=== PATIENT | female | born 1955 | race Caucasian/White ===

== ENCOUNTER → 2018-12-05 | Outpatient (REF) | payer OTHER ==
[2018-12-05 16:46] LABS: BASO % 0.7 % (0.0-1.0); EOS # 0.1 10^3/uL (0.0-0.50); LYMPH # 1.7 10^3/uL (1.5-4.5); LYMPH % 27.7 % (24.0-44.0); MEAN CORPUSCULAR HEMOGLOBIN 32.4 pg (27.0-33.0); MEAN CORPUSCULAR HGB CONC 32.6 g/dl (32.0-36.5); MEAN CORPUSCULAR VOLUME 99.5 fl (80.0-96.0); MONO # 0.6 10^3/uL (0.0-0.8); NEUTROPHILS # 3.8 10^3/uL (1.8-7.7); NEUTROPHILS % 61.3 % (36.0-66.0); PLATELET COUNT, AUTOMATED 255 10^3/uL (150-450); RED BLOOD COUNT 4.32 10^6/uL (4.00-5.40); WHITE BLOOD COUNT 6.1 10^3/uL (4.0-10.0)
[2018-12-05 17:21] LABS: ALBUMIN 4.3 GM/DL (3.2-5.2); ALT/SGPT 52 U/L (12-78); BILIRUBIN,TOTAL 0.6 MG/DL (0.2-1.0); BLOOD UREA NITROGEN 15 MG/DL (7-18); CALCIUM LEVEL 8.9 MG/DL (8.8-10.2); CARBON DIOXIDE LEVEL 30 MEQ/L (21-32); CHLORIDE LEVEL 104 MEQ/L (98-107); CHOLESTEROL LEVEL 228 MG/DL (<200); CHOLESTEROL RISK RATIO 3.454 (<5); CREATININE FOR GFR 0.62 MG/DL (0.55-1.30); FREE T4 1.04 NG/DL (0.76-1.46); GLOMERULAR FILTRATION RATE > 60.0 (>45); GLUCOSE, FASTING 96 MG/DL (70-100); HDL CHOLESTEROL 66 MG/DL (>40); LDL CHOLESTEROL 134 MG/DL (<100); NON-HDL-C 162 MG/DL; POTASSIUM SERUM 4.2 MEQ/L (3.5-5.1); SODIUM LEVEL 141 MEQ/L (136-145); TOTAL PROTEIN 7.7 GM/DL (6.4-8.2); TRIGLYCERIDES LEVEL 140 MG/DL (<150)
== END ==
LOC: M SFHCCLAY 13:44
PROVIDERS: ATTEND Nurse Practitioner Family
DX: Z00.00 Encounter for general adult medical examination without abnormal findings (principal); R23.4 Changes in skin texture; S20.362A Insect bite (nonvenomous) of left front wall of thorax, initial encounter; W57.XXXA Bitten or stung by nonvenomous insect and other nonvenomous arthropods, initial encounter; Y92.9 Unspecified place or not applicable; Y93.9 Activity, unspecified

== ENCOUNTER → 2018-12-31 | Outpatient (REF) | payer OTHER | LOC: M SFHCCLAY 16:04 | PROVIDERS: ATTEND Nurse Practitioner Family | DX: Z12.4 Encounter for screening for malignant neoplasm of cervix (principal) ==

== ENCOUNTER → 2019-01-21 | Outpatient (CLI) | payer OTHER ==
--- NOTE | 2019-01-21 15:36 | REPMRS ---
Patient History The patient states she had a clinical breast exam in December 2018. Patient is postmenopausal and is nulliparous. No known family history of cancer. Patient has a history of skin cancer at 59. Patient states she had a right breast bx that was benign, not sure where or when. Prior mammos are no longer available, 15 years ago. 3D TOMOSYNTHESIS WAS PERFORMED. [facility] lifetime risk for breast cancer is 7.0%. Digital Mammo Screening Bilat: January 21, 2019 - Exam #: [id number] Bilateral CC and MLO view(s) were taken. Technologist: La Nena Garcia, Technologist FINDINGS: There are scattered fibroglandular densities. There is no evidence of cancer on this mammogram. Assessment: BI-RADS/ACR category 2 mammogram. Benign Findings. Recommendation Routine screening mammogram of both breasts in 1 year (for women over age 40). This mammogram was interpreted with the aid of an FDA-approved computer-aided dectection system. Electronically Signed By: Abdiaziz Craig MD 01/21/19 [id number]
== END ==
LOC: M RAD 14:16
PROVIDERS: ATTEND Nurse Practitioner Family
DX: Z12.31 Encounter for screening mammogram for malignant neoplasm of breast (principal); Z85.828 Personal history of other malignant neoplasm of skin

== ENCOUNTER 2019-05-23 08:49 | Day surgery (SDC) | payer OTHER ==
[~2019-05-23] VITALS: Ht 172.7 cm; Wt 82.6 kg
[~2019-05-23 08:49] MED LIST: NS 1,000 ML IV ONE
[2019-05-23] MEDS ORDERED: PROPOFOL 200 MG/20 ML VIAL As Ordered ONE ×2 (11:06→11:17)
[2019-05-23] MEDS ORDERED: LIDOCAINE 2% INJ 100 MG/5 ML SDV (FOR ANES.) As Ordered ONE (11:06)
--- NOTE | 2019-05-23 11:26 | ROOR ---
Patient Name: Verito Walter Procedure Date: 05/23/2019 10:59 AM Date of : 1955 Age: 64 Room: [facility] Gender: Female Note Status: Finalized Procedure: Colonoscopy Indications: Screening for colorectal malignant neoplasm Providers: Bucky GUADALUPE MD Referring MD: Karon Fierro NP Requesting Provider: Medicines: Monitored Anesthesia Care Complications: No immediate complications. Procedure: Pre-Anesthesia Assessment: - The heart rate, respiratory rate, oxygen saturations, blood pressure, adequacy of pulmonary ventilation, and response to care were monitored throughout the procedure. The Colonoscope was introduced through the anus and advanced to the terminal ileum, with identification of the appendiceal orifice and IC valve. The colonoscopy was performed without difficulty. The patient tolerated the procedure well. The quality of the bowel preparation was good. Findings: The perianal and digital rectal examinations were normal. Two sessile polyps were found in the sigmoid colon and splenic flexure. The polyps were 9 to 10 mm in size. These polyps were removed with a piecemeal technique using a cold snare. Resection and retrieval were complete. Mild sigmoid diverticulosis and small internal hemorrhoids. The exam was otherwise without abnormality on direct and retroflexion views. Impression: - Two 9 to 10 mm polyps in the sigmoid colon and at the splenic flexure, removed piecemeal using a cold snare. Resected and retrieved. - Mild sigmoid diverticulosis and small internal hemorrhoids. - The examination was otherwise normal on direct and retroflexion views. Recommendation: - Repeat colonoscopy in 3 years for surveillance. Bucky Guadalupe MD Bucky GUADALUPE MD 05/23/2019 11:25:59 AM Electronically signed by Bucky GUADALUPE MD Number of Addenda: 0 Note Initiated On: 05/23/2019 10:59 AM Estimated Blood Loss: Estimated blood loss: none.
[2019-05-23 11:52] VITALS: BP 139/63
== END 2019-05-23 11:52 | disposition home or self-care (01) ==
LOC: M OPP 08:49
PROVIDERS: ATTEND Internal Medicine Gastroenterology
DX: Z12.11 Encounter for screening for malignant neoplasm of colon (principal); K63.5 Polyp of colon; K57.30 Diverticulosis of large intestine without perforation or abscess without bleeding; Z88.0 Allergy status to penicillin; Z88.2 Allergy status to sulfonamides

== ENCOUNTER → 2019-11-27 | Outpatient (CLI) | payer OTHER ==
--- NOTE | 2019-11-27 15:27 | REP ---
Left wrist: Four views. History: Injury. Findings: Four views of the left wrist demonstrate a transversely oriented fracture through the distal radial metaphysis with very slight impaction and 2 mm of dorsal displacement. There is associated soft-tissue swelling. There is a slightly comminuted fracture of the ulnar styloid. There is mild diffuse osteopenia. No carpal fracture is seen. Impression: Distal radial metaphyseal and ulnar styloid fractures. Mild diffuse osteopenia. Electronically Signed by Gurwinder Martinez MD 11/27/2019 03:18 P
== END ==
LOC: M LRY 15:03
PROVIDERS: ATTEND Physician Assistant
DX: S52.512A Displaced fracture of left radial styloid process, initial encounter for closed fracture (principal); X58.XXXA Exposure to other specified factors, initial encounter; Y92.9 Unspecified place or not applicable

== ENCOUNTER → 2020-01-17 | Outpatient (REF) | payer OTHER ==
[2020-01-17 16:53] LABS: BASO % 0.6 % (0.0-1.0); EOS # 0.1 10^3/uL (0.0-0.5); EOS % 1.1 % (0.0-3.0); HEMATOCRIT 40.1 % (36.0-47.0); HEMOGLOBIN 13.1 g/dl (12.0-15.5); LYMPH # 1.5 10^3/uL (1.5-5.0); LYMPH % 29.1 % (24.0-44.0); MEAN CORPUSCULAR HEMOGLOBIN 31.2 pg (27.0-33.0); MEAN CORPUSCULAR HGB CONC 32.7 g/dl (32.0-36.5); MEAN CORPUSCULAR VOLUME 95.5 fl (80.0-96.0); MONO # 0.5 10^3/uL (0.0-0.8); NEUTROPHILS # 3.1 10^3/uL (1.5-8.5); NEUTROPHILS % 59.8 % (36.0-66.0); PLATELET COUNT, AUTOMATED 241 10^3/uL (150-450); WHITE BLOOD COUNT 5.3 10^3/uL (4.0-10.0)
[2020-01-17 17:07] LABS: ALBUMIN 4.1 GM/DL (3.2-5.2); ALT/SGPT 28 U/L (12-78); BILIRUBIN,TOTAL 0.4 MG/DL (0.2-1.0); BLOOD UREA NITROGEN 13 MG/DL (7-18); CALCIUM LEVEL 9.2 MG/DL (8.8-10.2); CARBON DIOXIDE LEVEL 30 MEQ/L (21-32); CHLORIDE LEVEL 103 MEQ/L (98-107); CHOLESTEROL LEVEL 233 MG/DL (<200); CHOLESTEROL RISK RATIO 4.568 (<5); CREATININE FOR GFR 0.63 MG/DL (0.55-1.30); FREE T4 1.03 NG/DL (0.76-1.46); GLOMERULAR FILTRATION RATE > 60.0 (>45); GLUCOSE, FASTING 100 MG/DL (70-100); HDL CHOLESTEROL 51 MG/DL (>40); LDL CHOLESTEROL 155 MG/DL (<100); NON-HDL-C 182 MG/DL; POTASSIUM SERUM 3.8 MEQ/L (3.5-5.1); SODIUM LEVEL 137 MEQ/L (136-145); THYROID STIMULATING HORMONE 0.988 uIU/ML (0.358-3.740); TOTAL PROTEIN 7.3 GM/DL (6.4-8.2); TRIGLYCERIDES LEVEL 135 MG/DL (<150)
== END ==
LOC: M SFHCCLAY 10:19
PROVIDERS: ATTEND Nurse Practitioner Family
DX: E78.2 Mixed hyperlipidemia (principal)

== ENCOUNTER 2020-06-14 12:26 | Observation (INO) | payer OTHER ==
[~2020-06-14] VITALS: Ht 172.7 cm; Wt 83.1 kg
[2020-06-14] MEDS ORDERED: LABETALOL 100MG/20ML VIAL IV STA (12:52)
--- NOTE | 2020-06-14 13:19 | REP ---
INDICATION: Altered Mental Status COMPARISON: None. TECHNIQUE: Axial noncontrast images from the skull base to the thoracic inlet with coronal reformations. This CT examination was performed using the following dose reduction techniques: Automated exposure control, adjustment of mA and/or kv according to the patient's size, and use of iterative reconstruction technique. FINDINGS: Age-related atrophy and microvascular ischemic changes are appreciated. The ventricles and sulci are symmetric. Craig-white differentiation is maintained. There is no evidence for acute intracranial hemorrhage, mass/mass effect, pathology or infarction. No extra-axial fluid collection. Calvarium is intact. Paranasal sinuses and mastoid air cells are clear. IMPRESSION: Age related atrophy and microvascular ischemic changes. No acute intracranial hemorrhage, infarction, or mass/mass effect. <Electronically signed by Nino Morales > 06/14/20 [id number]
--- NOTE | 2020-06-14 13:20 | REP ---
INDICATION: Altered Mental Status COMPARISON: None. TECHNIQUE: Portable AP view of the chest FINDINGS: The mediastinum and cardiac silhouette are stable and within normal limits for portable technique. The lung mohan are clear without acute consolidation, effusion, or pneumothorax. Skeletal structures are intact. IMPRESSION: No acute consolidation or effusion. <Electronically signed by Nino Morales > 06/14/20 [id number]
[2020-06-14 13:29] LABS: BASO % 0.3 % (0.0-1.0); EOS % 0.5 % (0.0-3.0); HEMATOCRIT 41.9 % (36.0-47.0); HEMOGLOBIN 13.7 g/dl (12.0-15.5); LYMPH # 1.3 10^3/uL (1.5-5.0); LYMPH % 21.5 % (24.0-44.0); MEAN CORPUSCULAR HEMOGLOBIN 30.9 pg (27.0-33.0); MEAN CORPUSCULAR HGB CONC 32.7 g/dl (32.0-36.5); MEAN CORPUSCULAR VOLUME 94.4 fl (80.0-96.0); MONO # 0.5 10^3/uL (0.0-0.8); MONO % 8.2 % (0.0-5.0); NEUTROPHILS % 69.3 % (36.0-66.0); PLATELET COUNT, AUTOMATED 241 10^3/uL (150-450); RED BLOOD COUNT 4.44 10^6/uL (4.00-5.40); WHITE BLOOD COUNT 5.8 10^3/uL (4.0-10.0)
[2020-06-14 14:09] LABS: ACETAMINOPHEN LEVEL < 2.0 UG/ML (10.0-30.0); ALBUMIN 4.5 GM/DL (3.2-5.2); ALT/SGPT 40 U/L (12-78); BILIRUBIN,DIRECT < 0.1 MG/DL (0.0-0.2); BILIRUBIN,TOTAL 0.5 MG/DL (0.2-1.0); BLOOD UREA NITROGEN 17 MG/DL (7-18); CALCIUM LEVEL 9.1 MG/DL (8.8-10.2); CARBON DIOXIDE LEVEL 31 MEQ/L (21-32); CHLORIDE LEVEL 106 MEQ/L (98-107); CK-MB VALUE MASS < 1.0 NG/ML (<3.6); CPK CREATINE PHOSPHOKINASE 68 U/L (26-192); CREATININE FOR GFR 0.74 MG/DL (0.55-1.30); ETHYL ALCOHOL (ETHANOL) < 0.003 % (0.000-0.010); GLOMERULAR FILTRATION RATE > 60.0 (>45); GLUCOSE, FASTING 103 MG/DL (70-100); MB/CK RELATIVE INDEX 1.47 (< OR =4); POTASSIUM SERUM 3.7 MEQ/L (3.5-5.1); SODIUM LEVEL 141 MEQ/L (136-145); TOTAL PROTEIN 7.5 GM/DL (6.4-8.2); TROPONIN I < 0.02 NG/ML (< 0.10)
--- NOTE | 2020-06-14 15:27 | HPEPDOC ---
[facility] Medical History & Physical Date of Admission Jun 14, 2020 Date of Service: Jun 14, 2020 Attending Physician: Sarah Jack MD History and Physical CHIEF COMPLAINT: vision changes, numbness of leg HISTORY OF PRESENT ILLNESS: The patient is a 65-year-old female with past medical history of borderline hypertension, history of kidney stones who presented to [facility] emergency room after having acute onset of vision changes and numbness of her left lower extremity earlier in the day area the patient states this morning at approximately 7:30 she began experiencing left eye vision changes like a "film was over my eye". Is a described her vision changes as looking through a "prism". Around the same time she also noted left leg numbness and weakness which increased when she stood up. She also experienced increased unsteadiness on her feet. She took an aspirin and drank some water thinking perhaps this would help but the episodes reoccurred twice more within several hours. She denied chest pain, shortness of breath, fevers, chills, recent illness, nausea, vomiting. She admits to being increasingly stressed at home and sometimes being highly anxious. She does not have an official diagnosis of anxiety. Due to the recurrence of symptoms, the patient called a neighbor who then drove her to the emergency room to be evaluated. In the ER, BPs ranged 895822/76423 mmHg. Other vital signs were stable. All labs were unremarkable. ECG showed normal sinus rhythm. Patient had no recurr ence of symptoms during her emergency room stay. She was given labetalol 20 mg with little improvement of her blood pressure. The patient was ultimately admitted for hypertensive urgency, left leg numbness and unsteadiness, rule out TIA. REVIEW OF SYSTEMS: CONSTITUTIONAL: Denies lack of energy, unexplained weight gain or weight loss, loss of appetite, fever, night sweats EYES: Denies eye drainage, eye pain, visual changes, dry/irritated eye EARS, NOSE, MOUTH, THROAT: Denies difficulty hearing, ringing in ears, mouth sores, loose teeth, sore throat, facial numbness or pain NECK: Denies swollen glands CARDIOVASCULAR: Denies irregular heartbeat, racing heart, chest pains, swelling of feet or legs, pain in legs with walking RESPIRATORY: Denies shortness of breath, night sweats, wheezing, sputum production, oxygen at home, coughing up blood, cough lasting > 1 month GASTROINTESTINAL: Denies abdominal pain, constipation, bloody stool, diarrhea, heartburn, nausea, vomiting GENITOURINARY: Denies painful urination, bloody urine, frequent urination, urgency, leaking urine, impotence MUSCULOSKELETAL: Denies joint pain, muscle pain, leg swelling INTEGUMENTARY: Denies rash, itching, new skin lesion, change in existing skin lesion, hair loss or increase, breast changes. NEUROLOGICAL: Denies headaches PSYCHIATRIC: Denies depression, anxiety, recurrent bad thoughts, mood swings, hallucinations PAST MEDICAL HISTORY: 1. Borderline hypertension 2. Hx of kidney stones PAST SURGICAL HISTORY: 1. 3 etopic emergency surgeries 2. cyst removal 3. oophrectomy 4. appendectomy 5. Kidney stone removal FAMILY HISTORY: Father: CABG, stroke. at 79 y/o Mother: atrial fibrillation. Alive SOCIAL HISTORY: Prior smoker for 6 years, 1 PPD of unfiltered cigarettes. Quit 35 years ago. Denies alcohol or drug use. Lives alone. 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 PCP- La Nena Fierro. ALLERGIES: Please see below. HOME MEDICATIONS: Please see below. PHYSICAL EXAMINATION: VS: Please see below CONSTITUTIONAL: No acute distress, resting comfortably, AAO x 3 EYES: PERRLA, EOM intact HENT, MOUTH: Normocephalic, atraumatic, moist mucous membranes, NECK: SUPPLE, no JVD, no lymphadenopathy, no carotid bruit CV: Regular rate and rhythm, S1S2 normal, no murmurs/rubs/gallops RESPIRATORY: Clear to auscultation bilaterally, no rales/rhonchi/wheezes GI: obese abd, BS positive in 4 quadrants, soft, nontender, nondistended, no rebound or guarding, no organomegaly : Deferred MUSCULOSKELETAL: Normal ROM. No cyanosis, clubbing, swelling, joint deformity, extremity edema INTEGUMENTARY: Intact, no rashes, no lesions, no erythema NEUROLOGIC: Cranial Nerves II-XII are intact, no focal deficits PSYCHIATRIC: Mood and affect are normal LABORATORY DATA: Please see below IMAGING: CT head: Neg for acute abnormality CXR: Neg for acute cardiopulmonary abnormality ASSESSMENT: 65-year-old female with past medical history of borderline hypertension, history of kidney stones admitted for hypertensive urgency, left leg numbness and unsteadiness, rule out TIA. PLAN: #Hypertensive urgency -BP 356040/46738 mmHg, little improvement with labetalol -ECG: NSR -Hx of borderline HTN, anxiety, obesity, hx of smoking and life stressors which could contribute -Started on lisinopril 5 mg PO daily -C/w tele, hydralazine PRN. If anxiety is contributing, consider low dose ativan PRN #Left side numbness, unsteadiness r/o TIA 2/2 to uncontrolled HTN -Numbness, weakness resolved upon arrival to ER -F/u Carotid US, echocardiogram, lipid panel, HbA1c -BP control as mentioned above -Neuro checks Q4H #DVT px -Enoxaparin DISPOSITION: Admitted under observation status. Plan is discharge home when medically cleared. Vital Signs Vital Signs Date Time Temp Pulse Resp B/P (MAP) Pulse Ox O2 Delivery O2 Flow Rate FiO2 06/14/20 13:41 06/14/20 13:41 71 98 06/14/20 12:27 99.5 20 Room Air Laboratory Data Labs 24H Laboratory Tests 2 06/14/20 13:16: Immature Granulocyte % (Auto) 0.2, Neutrophils (%) (Auto) 69.3H, Lymphocytes (%) (Auto) 21.5L, Monocytes (%) (Auto) 8.2H, Eosinophils (%) (Auto) 0.5, Basophils (%) (Auto) 0.3, Neutrophils # (Auto) 4.0, Lymphocytes # (Auto) 1.3L, Monocytes # (Auto) 0.5, Eosinophils # (Auto) 0.0, Basophils # (Auto) 0.0, Nucleated Red Blood Cells % (auto) 0.0, Anion Gap 4L, Glomerular Filtration Rate > 60.0, Calci um Level 9.1, Total Bilirubin 0.5, Direct Bilirubin < 0.1, Aspartate Amino Transf (AST/SGOT) 24, Alanine Aminotransferase (ALT/SGPT) 40, Alkaline Phosphatase 70, Total Creatine Kinase 68, Creatine Kinase MB < 1.0, Creatine Kinase MB Relative Index 1.47, Troponin I < 0.02, Total Protein 7.5, Albumin 4.5, Albumin/Globulin Ratio 1.5, Thyroid Stimulating Hormone (TSH) 1.450, Salicylates Level 4.0L, Acetaminophen Level < 2.0L, Ethyl Alcohol Level < 0.003 CBC/BMP Laboratory Tests 06/14/20 13:16 Home Medications No Active Prescriptions or Reported Meds Allergies Coded Allergies: Sulfa (Sulfonamide Antibiotics) (Verified Allergy, Unknown, 05/09/19) ampicillin (Verified Allergy, Unknown, rash, 05/09/19) A-FIB/CHADSVASC A-FIB History Current/History of A-Fib/PAF?: No Current PO Anticoag Therapy: No Age/Risk Factor Scoring CHADSVASC: CHADSVASC Response (Comments) Value Age Risk Factor Age < 65 years old 0 Gender Risk Factor Female 1 Hx of CHF No 0 Hx of HTN Yes 1 Hx of Stroke/TIA/or VTE No 0 Hx of Diabetes No 0 Hx of Vascular Disease No 0 Total 2 Treatment Treatment ordered: Other Other anticoagulant ordered: Sarah Marcano MD Jun 14, 2020 15:27
[2020-06-14 15:52] LABS: CHOLESTEROL LEVEL 269 MG/DL (<200); CHOLESTEROL RISK RATIO 4.483 (<5); HDL CHOLESTEROL 60 MG/DL (>40); LDL CHOLESTEROL 173 MG/DL (<100); NON-HDL-C 209 MG/DL; TRIGLYCERIDES LEVEL 179 MG/DL (<150)
[2020-06-14] MEDS ORDERED: lisinopriL 5 MG TAB PO ONE (16:00)
[2020-06-14] MEDS: hydrALAZINE 20MG/ML 1ML VIAL (J0360 PER 20MG) IV SCH (16:00)
[2020-06-14 16:02] LABS: HEMOGLOBIN A1c 5.1 %
[2020-06-14 18:15] VITALS: BP 170/90
[2020-06-14] MEDS: ATORVASTATIN 20 MG TAB PO SCH (18:27)
[2020-06-14] MEDS: ASPIRIN 81 MG ENTERIC TAB PO SCH (18:28)
[2020-06-14 20:00] VITALS: BP 136/64
--- NOTE | 2020-06-14 20:03 | ECGEPIP ---
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
[2020-06-14] MEDS: ENOXAPARIN 40MG/0.4ML SYRINGE (J1650 PER 10MG) SC SCH (20:38)
--- NOTE | 2020-06-14 21:18 | REPVR ---
PROCEDURE INFORMATION: Exam: US Duplex Bilateral Extracranial Arteries Exam date and time: 06/14/2020 8:32 PM Age: 65 years old Clinical indication: Visual disturbance; Additional info: Vision changes, weakness, R/O TIA TECHNIQUE: Imaging protocol: Real-time Duplex ultrasound scan of the bilateral carotid and vertebral arteries combining israel scale, color Doppler and spectral waveform analysis. Bilateral exam. COMPARISON: No relevant prior studies available. FINDINGS: Right common carotid artery: Mild atherosclerotic plaque is present. No occlusion or significant stenosis. Waveforms are normal. Peak systolic velocity of 91.3 cm/s. Right internal carotid artery: Mild atherosclerotic plaque is present. No occlusion or significant stenosis. Waveforms are normal. Peak systolic velocity of 105.8 cm/s. Right ICA/CCA ratio: 1.16. Within normal limits (<2). Right external carotid artery: No significant stenosis in the origin. Peak systolic velocity of 113.3 cm/s. Right vertebral artery: Unremarkable. Antegrade flow. Peak systolic velocity of 52.6 cm/s. Left common carotid artery: Mild atherosclerotic plaque is present. No occlusion or significant stenosis. Waveforms are normal. Peak systolic velocity of 124 cm/s. Left internal carotid artery: Mild atherosclerotic plaque is present. No occlusion or significant stenosis. Waveforms are normal. Peak systolic velocity of 99 cm/s. Left ICA/CCA ratio: 0.80. Within normal limits (<2). Left external carotid artery: No significant stenosis in the origin. Peak systolic velocity of 132.3 cm/s. Left vertebral artery: Unremarkable. Antegrade flow. Peak systolic velocity of 60.2 cm/s. IMPRESSION: No carotid arterial stenosis. REFERENCES: SRU CRITERIA. The degree of internal carotid artery stenosis is based on criteria defined by the Society of Radiologists in Ultrasound (SRU). Normal is no stenosis. Mild is less than 50% stenosis. Moderate is 50-69% stenosis. Severe is greater than 69% stenosis to near occlusion. Near occlusion is a markedly narrowed lumen. Total occlusion is no detectable patent lumen. Electronically signed by: Stephan Lloyd On 06/14/2020 21:18:25 PM
[2020-06-15] VITALS (7 sets, daily range): BP systolic 120–127; BP diastolic 56–59
[2020-06-15] MEDS: hydrALAZINE 20MG/ML 1ML VIAL (J0360 PER 20MG) IV SCH (00:33)
[2020-06-15 05:24] LABS: HEMOGLOBIN 13.3 g/dl (12.0-15.5); MEAN CORPUSCULAR HEMOGLOBIN 31.6 pg (27.0-33.0); MEAN CORPUSCULAR HGB CONC 33.3 g/dl (32.0-36.5); PLATELET COUNT, AUTOMATED 227 10^3/uL (150-450); RED BLOOD COUNT 4.21 10^6/uL (4.00-5.40); WHITE BLOOD COUNT 9.5 10^3/uL (4.0-10.0)
[2020-06-15 05:47] LABS: BLOOD UREA NITROGEN 21 MG/DL (7-18); CALCIUM LEVEL 9.4 MG/DL (8.8-10.2); CARBON DIOXIDE LEVEL 28 MEQ/L (21-32); CHLORIDE LEVEL 105 MEQ/L (98-107); CREATININE FOR GFR 0.69 MG/DL (0.55-1.30); GLOMERULAR FILTRATION RATE > 60.0 (>45); GLUCOSE, FASTING 141 MG/DL (70-100); SODIUM LEVEL 139 MEQ/L (136-145)
[2020-06-15] MEDS ORDERED: lisinopriL 5 MG TAB PO SCH (09:00)
[2020-06-15] MEDS: ASPIRIN 81 MG ENTERIC TAB PO SCH (09:05)
[2020-06-15] MEDS: ATORVASTATIN 20 MG TAB PO SCH (09:06)
[2020-06-15] MEDS: lisinopriL 5 MG TAB PO SCH (09:06)
[2020-06-15] MEDS ORDERED: ISOVUE-370 76% 100ML VIAL As Ordered ONE (13:10)
--- NOTE | 2020-06-15 13:42 | REPVR ---
PROCEDURE INFORMATION: Exam: CT Angiography Head With Contrast Exam date and time: 06/15/2020 1:08 PM Age: 65 years old Clinical indication: Other: R. O TIA; Additional info: R/O TIA TECHNIQUE: Imaging protocol: Computed tomography angiography of the head with intravenous contrast. 3D rendering (Not supervised by radiologist): MIP and/or 3D reconstructed images were created by the technologist. Radiation optimization: All CT scans at this facility use at least one of these dose optimization techniques: automated exposure control; mA and/or kV adjustment per patient size (includes targeted exams where dose is matched to clinical indication); or iterative reconstruction. Contrast material: ISOVUE 370; Contrast volume: 75 ml; Contrast route: INTRAVENOUS (IV); COMPARISON: CT Head without contrast 06/14/2020 12:55 PM FINDINGS: ANTERIOR CIRCULATION: Right internal carotid artery: Unremarkable. Intracranial segment is patent with no significant stenosis. No aneurysm. Right middle cerebral artery: Unremarkable. No occlusion or significant stenosis. No aneurysm. Right anterior cerebral artery: Unremarkable. No occlusion or significant stenosis. No aneurysm. Left internal carotid artery: Atherosclerotic calcifications are seen involving the left cavernous internal carotid artery. Mild stenosis of the left cavernous and supraclinoid ICA is present. Left middle cerebral artery: Unremarkable. No occlusion or significant stenosis. No aneurysm. Left anterior cerebral artery: Unremarkable. No occlusion or significant stenosis. No aneurysm. POSTERIOR CIRCULATION: Right vertebral artery: Unremarkable. No occlusion or significant stenosis. No aneurysm. Left vertebral artery: Unremarkable. No occlusion or significant stenosis. No aneurysm. Basilar artery: Unremarkable. No occlusion or significant stenosis. No aneurysm. Right posterior cerebral artery: There is severe multifocal stenosis involving the right posterior cerebral artery (P2 and P3 segments). Left posterior cerebral artery: Unremarkable. No occlusion or significant stenosis. No aneurysm. Veins: The venous sinuses are patent. Brain: No definite mass, mass effect, or midline shift. Cerebral ventricles: No ventriculomegaly. Bones/joints: Unremarkable. No acute fracture. Soft tissues: Unremarkable. 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
--- NOTE | 2020-06-15 14:13 | DS.PDOC ---
Discharge Summary General Date of Admission Jun 14, 2020 at 12:27 Date of Discharge Jun 16, 2020 Primary Care Physician: Karon Fierro REMEDIATION PROJECT ENGINEER Attending Physician: TEGAN NELSON MD Discharge Summary PROCEDURES PERFORMED DURING STAY: None. ADMITTING DIAGNOSES: 1. Hypertensive Urgency DISCHARGE DIAGNOSES: 1. Hypertension 2. HLD. 3. Right occipital ischemic CVA 4. NEUROLOGY EPILEPSY PHYSICIAN Stenosis COMPLICATIONS/CHIEF COMPLAINT: Hypertensive Urgency/ Numbness. HISTORY OF PRESENT ILLNESS: The patient is a 65yo female who was at her normal state of health until 7:30am the day of admission. She was going about her normal daily activities when she felt her L leg go numb, and L vision changes. She described seeing through her left eye as if through a clear prism. She had experiences the visual disturbance before, and it was nonpainful so she was not concerned. Upon the numbness in her L leg resolving and restarting three times, she called a friend of hers to bring her to the ED. HOSPITAL COURSE: Within the ED the patient was found to have a BP ranging from 187-227/ 89-108. She was started on IV labetalol, hydralazine, and lisinopril. The numbness and vision changes resolved in the ER. Her BP resolved in the ER to 120s/60s, and she was admitted for observation and TIA/Stroke workup. See imaging results detailed below. Brain MRI revealed an acute right occipital infarct. Head CTA revealed right NEUROLOGY EPILEPSY PHYSICIAN stenosis. Carotid U/S was negative for stenosis. She was started on aspirin and statin. She was found to have elevated triglycerides, total cholesterol and LDL cholesterol. Her IV antihypertensives were transitioned to PO Lisinopril. By the following morning, her symptoms and BP remained stable. She was discharged after completing her echocardiogram, the results should be reviewed with her by her PCP at her hospital follow up appointment. DISCHARGE MEDICATIONS: Please see below. ALLERGIES: Please see below. PHYSICAL EXAMINATION ON DISCHARGE: VITAL SIGNS: Please see below. GENERAL: Patient is a pleasant woman, who appears younger than her stated age. S he is well groomed and cooperative. NAD. HEENT: Normocephalic/Atraumatic. Eyes are EOMI and CARLOS. Mucus membranes are moist and pink. NECK: No carotic bruits are auscultated. Neck is supple without lymphadenopathy or thyromegaly. CARDIOVASCULAR EXAMINATION: RRR. S1 and S2 sounds are heard. No S3 or S4 sounds are appreciated. Radial pules are equal and capillary refill is <2s. RESPIRATORY EXAMINATION: Lungs are clear to auscultation b/l. There are wheezing, rales or rubs noted. ABDOMINAL EXAMINATION: Abdomen is soft, nondistended and nontender. Bowel sounds are heard in all four quadrants. EXTREMITIES: There is no edema in the legs. Moves all extremities well. NEUROLOGICAL EXAMINATION: CN II-XII are intact b/l. PSYCHIATRIC EXAMINATION: AAOx3 Normal mood and affect. LABORATORY DATA: Please see below. IMAGING: Jun 14, Head CT Dr. Rosa. "Age related atrophy and microvascular ischemic changes. No acute intracranial hemorrhage, infarction, or mass/mass effect." Jun 14, Chest XR Dr. Morales. "No acute consolidation or effusion" Jun 14, Carotid US, Dr. Lloyd On. "No carotid arterial stenosis. " Jun 15, CTA head, Dr. Hernandez. "Severe stenosis of the right posterior cerebral artery" Jun 15, MRI Brain "Small acute right occipital lobe infarct " PROGNOSIS: Fair ACTIVITY: As tolerated. DIET: Regular Diet. DISCHARGE INSTRUCTIONS: 1. Followup with PCP in 7-10 days for discharge followup. Review echocardiogram results. 2. Followup with Neurologist in 2 weeks for right occipital infarct and NEUROLOGY EPILEPSY PHYSICIAN stenosis and neurological management. ITEMS TO FOLLOWUP ON ON OUTPATIENT: 1. Echocardiogram results with PCP. DISCHARGE CONDITION: Stable. TIME SPENT ON DISCHARGE: Greater than 35 minutes. Vital Signs/I&Os Vital Signs Date Time Temp Pulse Resp B/P (MAP) Pulse Ox O2 Delivery O2 Flow Rate FiO2 06/15/20 12:00 98.6 53 18 125/59 (81) 94 Room Air 06/15/20 00:36 0.0 I&O- Last 24 Hours up to 6 AM0 06/15/20 05:59 Intake Total 0 ml Output Total 0 ml Balance 0 ml Laboratory Data Labs 24H Laboratory Tests 2 06/14/20 16:44: Coronavirus (COVID-19)(PCR) NEGATIVE 06/15/20 05:12: Nucleated Red Blood Cells % (auto) 0.0, Anion Gap 6L, Glomerular Filtration Rate > 60.0, Calcium Level 9.4 CBC/BMP Laboratory Tests 06/15/20 05:12 Discharge Medications Scheduled Aspirin (Aspirin) 81 Mg Tab.chew, 81 MG PO DAILY for pain Atorvastatin Calcium (Atorvastatin Calcium) 40 Mg Tablet, 40 MG PO DAILY Lisinopril (Lisinopril) 10 Mg Tablet, 10 MG PO DAILY Allergies Coded Allergies: Sulfa (Sulfonamide Antibiotics) (Verified Allergy, Unknown, 05/09/19) ampicillin (Verified Allergy, Unknown, rash, 05/09/19) GME ATTESTATION GME ATTESTATION My faculty preceptor for this patient encounter was physically present during the encounter and was fully available. All aspects of the patient interview, examination, medical decision making process, and medical care plan development were reviewed and approved by the faculty preceptor. The faculty preceptor is aware and concurs with the plan as stated in the body of this note and will att est to such by his/her cosignature. ATTENDING NOTE Patient was seen and examined by me personally with the students and the residents. Agree with the above assessment and plan. LEE BRANNON Jun 15, 2020 14:13 MELISSA SPARKS D.O. Jun 15, 2020 17:17 TEGAN NELSON MD Jun 19, 2020 11:14
[2020-06-15] MEDS ORDERED: ATOR40TA75 PO ×2 (15:47→17:11)
[2020-06-15] MEDS ORDERED: LISI10TA4 PO ×2 (15:47→17:11)
[2020-06-15] MEDS ORDERED: ASPI81TAEC PO (15:47)
[2020-06-15 16:40] LABS: VITAMIN B12 LEVEL 278 PG/ML (247-911)
[2020-06-15] MEDS ORDERED: ASPI81CH33 PO (17:11)
--- NOTE | 2020-06-15 18:02 | REPVR ---
PROCEDURE INFORMATION: Exam: MR Head Without Contrast Exam date and time: 06/15/2020 4:54 PM Age: 65 years old Clinical indication: Dizziness; Additional info: R/O TIA TECHNIQUE: Imaging protocol: MR of the head without contrast. COMPARISON: CT Head without contrast 06/14/2020 12:55 PM FINDINGS: Brain: There is a tiny area of restricted diffusion within the right occipital lobe. Corresponding decreased signal on the ADC map and increased T2 signal is present. The findings are consistent with an acute to subacute infarct. Mild chronic small vessel ischemic disease is present in the cerebral white matter. There is no acute intracranial hemorrhage, mass effect, or midline shift. Cerebral ventricles: No hydrocephalus. Bones/joints: Unremarkable. Paranasal sinuses: Normal as visualized. No acute sinusitis. Mastoid air cells: Normal as visualized. No mastoid effusion. Orbits: Unremarkable. Soft tissues: Unremarkable. IMPRESSION: Small acute right occipital lobe infarct Electronically signed by: Kain Hernandez On 06/15/2020 18:01:48 PM
--- NOTE | 2020-06-15 18:40 | IPNPDOC ---
Text Note Date of Service The patient was seen on 06/15/20. NOTE SUBJECTIVE: Patient was seen and examined this morning at bedside. She states that her symptoms that she presented to the ER with resolved yesterday prior to being admitted to the hospital. Denies headache, numbness, vision changes currently. OBJECTIVE: VITAL SIGNS: See below GENERAL: Alert, comfortable, in no acute distress HEENT: Normocephalic, atraumatic, PERRLA, EOMI, moist mucous membranes NECK: Supple, trachea midline, no lymphadenopathy, no JVD CARDIOVASCULAR: Regular rate and rhythm, normal S1 and S2. No murmurs, rubs, or gallops RESPIRATORY: Clear to auscultation bilaterally with equal air entry bilaterally. No wheezing, rhonchi, or rales. ABDOMEN: Soft, nontender, nondistended, bowel sounds present, no masses or hepa tosplenomegaly appreciated EXTREMITIES: No cyanosis or edema. Pulses 2+/4 in bilateral upper and lower extremities SKIN: [place], warm, dry NEUROLOGIC: Alert and oriented x3 to person, place and time. Cranial nerves 2-12 grossly intact. No focal deficits appreciated PSYCHIATRIC: Mood and affect appropriate ASSESSMENT/PLAN: 65-year-old female who presented with vision changes and left-sided numbness, found to have hypertension, admitted for blood pressure control and workup to rule out TIA # Transient left sided vision changes and left leg numbness/weakness Head CT negative. Carotid artery ultrasound negative for stenosis. EKG shows sinus rhythm. No events noted on telemetry. 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 Echocardiogram pending Discussed case with Dr. Morales who will see the patient in follow-up outpatient. Continue aspirin 81 mg and atorvastatin 40 mg # Hypertension Status post IV antihypertensives with good effect. BP now well controlled. Continue lisinopril 10 mg daily # Hyperlipidemia Started on atorvastatin 40 mg DVT prophylaxis: Lovenox 40mg SC Disposition: pending complete work up VS,Tan, I+O VS, Tan, I+O Laboratory Tests 06/15/20 05:12 Vital Signs Date Time Temp Pulse Resp B/P (MAP) Pulse Ox O2 Delivery O2 Flow Rate FiO2 06/15/20 15:26 97.7 84 18 126/59 (81) 99 Room Air 06/15/20 00:36 0.0 I&O- Last 24 Hours up to 6 AM 06/15/20 06:00 Intake Total 0 ml Output Total 0 ml Balance 0 ml GME ATTESTATION GME ATTESTATION My faculty preceptor for this patient encounter was physically present during the encounter and was fully available. All aspects of the patient interview, examination, medical decision making process, and medical care plan development were reviewed and approved by the faculty preceptor. The faculty preceptor is aware and concurs with the plan as stated in the body of this note and will attest to such by his/her cosignature. ATTENDING NOTE Patient was seen and examined by me personally with the students and the residents. Agree with the above assessment and plan. MEILSSA SPARKS D.O. Jun 15, 2020 18:39 TEGAN NELSON MD Jun 19, 2020 11:14
[2020-06-15] MEDS: ENOXAPARIN 40MG/0.4ML SYRINGE (J1650 PER 10MG) SC SCH (22:34)
[2020-06-16] VITALS: BP 122/55
[2020-06-16 04:00] VITALS: BP 107/52
[2020-06-16 06:53] VITALS: BP 124/58
[2020-06-16] MEDS: ASPIRIN 81 MG ENTERIC TAB PO SCH (06:53)
[2020-06-16] MEDS: lisinopriL 5 MG TAB PO SCH (06:53)
[2020-06-16 07:24] VITALS: BP 139/83
[2020-06-16] MEDS ORDERED: ATORVASTATIN 20 MG TAB PO SCH (09:00)
--- NOTE | 2020-06-19 12:54 | ECHO ---
DATE OF PROCEDURE: 06/16/2020 Age: 65 Gender: Female Height: 173 cm Weight: 85 kg REFERRING PHYSICIAN: Dr. Sarah Jack INDICATION: Transient cerebral ischemia, unspecified. MEASUREMENTS: 2D Measurements: Left ventricle diastole 5.5 cm Intraventricular septum 0.95 cm Posterior wall 0.86 cm Left atrium 3.8 cm Left atrial volume index 34 cm Aortic root 3.0 cm Inferior vena cava 1.9 cm Doppler Measurements: Trace aortic regurgitation No aortic stenosis Aortic valve velocity 152 cm/s LVOT velocity 95.0 cm/s No mitral regurgitation No mitral stenosis Mitral E velocity 62.4 cm/s Mitral A velocity 71.1 cm/s Trace tricuspid regurgitation Trace pulmonic regurgitation MITRAL ANNULAR TISSUE DOPPLER E prime septal 6.0 cm/s, E prime lateral 8.5 cm/s DESCRIPTION: Rhythm was sinus. Image quality was fair. No pericardial effusion. This was a 2D, M-mode, color flow Doppler, and pulsed wave Doppler examination including mitral annular tissue Doppler. CONCLUSIONS: 1. Normal left ventricle internal dimensions and wall thickness. Normal regional left ventricular (LV) wall motion and wall thickening. Normal left ventricular (LV) systolic function. Left ventricular ejection fraction (LVEF) 65% by visual estimate. Grade 1 left ventricular (LV) diastolic dysfunction. 2. Mild left atrial dilatation by left atrial volume index. 3. Mild aortic valve sclerosis of a 3-cuspid aortic valve. Trace aortic regurgitation. 4. Mild mitral annular calcification. No mitral regurgitation. 5. Otherwise normal appearing echocardiogram Doppler findings. MTDD
== END 2020-06-16 09:06 | disposition home or self-care (01) ==
LOC: M ED 12:26 → M ED INP 12:27 → ENRESERV 16:14 → M PCU 18:10
PROVIDERS: ADMIT Internal Medicine; ATTEND Internal Medicine
DX: I16.0 Hypertensive urgency (principal); I10 Essential (primary) hypertension; E78.49 Other hyperlipidemia; I63.9 Cerebral infarction, unspecified; I66.29 Occlusion and stenosis of unspecified posterior cerebral artery; Z79.82 Long term (current) use of aspirin; Z79.899 Other long term (current) drug therapy; Z88.0 Allergy status to penicillin; Z88.2 Allergy status to sulfonamides
CPT/HCPCS: 36415; 70450; 70496; 70551; 71045; 80048; 80061; 80076; 82550; 82553; 82607; 83036; 84443; 85025; 85027; 93005; 93041; 93306; 93880; 94760; 96372; 96374; 96375; 96376; 99285; G0480; J0360; J1650; Q9967; U0002

== ENCOUNTER → 2020-07-21 | Outpatient (REF) | payer OTHER ==
[~2020-07-21] MED LIST changes: +ASPI81CH33 PO; +ASPI81TAEC PO; +ATOR40TA75 PO; +LISI10TA4 PO; -NS 1,000 ML IV ONE
[2020-07-21 16:18] LABS: BASO % 0.4 % (0.0-1.0); EOS # 0.1 10^3/uL (0.0-0.5); EOS % 1.2 % (0.0-3.0); HEMATOCRIT 36.4 % (36.0-47.0); HEMOGLOBIN 11.8 g/dl (12.0-15.5); LYMPH # 1.6 10^3/uL (1.5-5.0); LYMPH % 28.3 % (24.0-44.0); MEAN CORPUSCULAR HGB CONC 32.4 g/dl (32.0-36.5); MEAN CORPUSCULAR VOLUME 98.6 fl (80.0-96.0); MONO # 0.4 10^3/uL (0.0-0.8); MONO % 7.5 % (0.0-5.0); NEUTROPHILS # 3.5 10^3/uL (1.5-8.5); NEUTROPHILS % 62.4 % (36.0-66.0); PLATELET COUNT, AUTOMATED 216 10^3/uL (150-450); RED BLOOD COUNT 3.69 10^6/uL (4.00-5.40); WHITE BLOOD COUNT 5.6 10^3/uL (4.0-10.0)
[2020-07-21 16:26] LABS: ALBUMIN 4.2 GM/DL (3.2-5.2); ALT/SGPT 31 U/L (12-78); BILIRUBIN,TOTAL 0.5 MG/DL (0.2-1.0); BLOOD UREA NITROGEN 18 MG/DL (7-18); CALCIUM LEVEL 9.1 MG/DL (8.8-10.2); CARBON DIOXIDE LEVEL 31 MEQ/L (21-32); CHLORIDE LEVEL 105 MEQ/L (98-107); CREATININE FOR GFR 0.65 MG/DL (0.55-1.30); GLOMERULAR FILTRATION RATE > 60.0 (>45); GLUCOSE, FASTING 97 MG/DL (70-100); SODIUM LEVEL 141 MEQ/L (136-145); TOTAL PROTEIN 6.9 GM/DL (6.4-8.2)
== END ==
LOC: M SFHCCLAY 12:19
PROVIDERS: ATTEND Nurse Practitioner Family
DX: I10 Essential (primary) hypertension (principal); I63.9 Cerebral infarction, unspecified

== ENCOUNTER → 2020-12-18 | Outpatient (REF) | payer OTHER ==
[~2020-12-18] MED LIST changes: +ASPI-569 PO; -ASPI81TAEC PO; +LISI10TA22 PO; -LISI10TA4 PO
[2020-12-18 12:11] LABS: BASO % 0.7 % (0.0-1.0); EOS # 0.1 10^3/uL (0.0-0.5); EOS % 1.2 % (0.0-3.0); HEMATOCRIT 37.6 % (36.0-47.0); HEMOGLOBIN 12.1 g/dl (12.0-15.5); LYMPH # 1.2 10^3/uL (1.5-5.0); LYMPH % 28.8 % (24.0-44.0); MEAN CORPUSCULAR HEMOGLOBIN 31.9 pg (27.0-33.0); MEAN CORPUSCULAR HGB CONC 32.2 g/dl (32.0-36.5); MEAN CORPUSCULAR VOLUME 99.2 fl (80.0-96.0); MONO # 0.4 10^3/uL (0.0-0.8); MONO % 8.4 % (2.0-8.0); NEUTROPHILS # 2.5 10^3/uL (1.5-8.5); NEUTROPHILS % 60.4 % (36.0-66.0); PLATELET COUNT, AUTOMATED 231 10^3/uL (150-450); RED BLOOD COUNT 3.79 10^6/uL (4.00-5.40); WHITE BLOOD COUNT 4.2 10^3/uL (4.0-10.0)
[2020-12-18 13:00] LABS: ALBUMIN 4.2 GM/DL (3.2-5.2); ALT/SGPT 25 U/L (12-78); BILIRUBIN,TOTAL 0.5 MG/DL (0.2-1.0); BLOOD UREA NITROGEN 16 MG/DL (7-18); CALCIUM LEVEL 9.4 MG/DL (8.8-10.2); CARBON DIOXIDE LEVEL 30 MEQ/L (21-32); CHLORIDE LEVEL 107 MEQ/L (98-107); CHOLESTEROL LEVEL 109 MG/DL (<200); CREATININE FOR GFR 0.48 MG/DL (0.55-1.30); FREE T4 1.03 NG/DL (0.76-1.46); GLOMERULAR FILTRATION RATE > 60.0 (>45); GLUCOSE, FASTING 84 MG/DL (70-100); HDL CHOLESTEROL 50 MG/DL (>40); LDL CHOLESTEROL 41 MG/DL (<100); NON-HDL-C 59 MG/DL; POTASSIUM SERUM 4.2 MEQ/L (3.5-5.1); SODIUM LEVEL 142 MEQ/L (136-145); TOTAL PROTEIN 6.8 GM/DL (6.4-8.2); TRIGLYCERIDES LEVEL 88 MG/DL (<150)
== END ==
LOC: M SFHCCLAY 09:04
PROVIDERS: ATTEND Nurse Practitioner Family
DX: E78.2 Mixed hyperlipidemia (principal); I63.9 Cerebral infarction, unspecified; I10 Essential (primary) hypertension; Z13.1 Encounter for screening for diabetes mellitus

== ENCOUNTER → 2020-12-23 | Outpatient (CLI) | payer OTHER ==
--- NOTE | 2020-12-23 11:11 | REP ---
INDICATION: RT HIP PAIN COMPARISON: None. TECHNIQUE: AP and frog-lateral views of the right hip FINDINGS: Generalized age-related changes include subtle increased sclerosis to the acetabulum with minimal joint space narrowing. No further overt osteoarthritic or significant degenerative changes are appreciated. No evidence for acute or healed injury. Surrounding soft tissues are normal. IMPRESSION: Generalized age-related changes. <Electronically signed by Nino Morales > 12/23/20 1105
== END ==
LOC: M CLY 10:46
PROVIDERS: ATTEND Nurse Practitioner Family
DX: M25.551 Pain in right hip (principal)

== ENCOUNTER → 2021-01-27 | Outpatient (CLI) | payer MEDICARE ==
--- NOTE | 2021-01-27 14:05 | REPMRS ---
Patient History The patient states she had a clinical breast exam in November 2020. Patient is postmenopausal, has history of other cancer, and is nulliparous. No known family history of cancer. Benign excisional biopsy. Patient states no breast complaints today. Patient has signed MRS History Sheet. Digital Woman Screen Mammo: January 27, 2021 - Exam #: [id number] Bilateral CC and MLO view(s) were taken. Technologist: Mikaela Caldera, Technologist Prior study comparison: January 21, 2019, bilateral digital mammo screening bilat, performed at [facility]. FINDINGS: There are scattered fibroglandular densities. The Volpara volumetric breast density category is:B. There has been no change in the appearance of the mammogram from the prior studies. There is a mild amount of scattered fibroglandular density which is fairly symmetric. There is no interval development of dominant mass, architectural distortion, or grouped microcalcification suggestive of malignancy. 3-D tomosynthesis shows no additional findings. Assessment: BI-RADS/ACR category 1 mammogram. Negative Mammogram. Recommendation Routine screening mammogram of both breasts in 1 year (for women over age 40). This patient's [facility] Lifetime Breast Cancer Risk is estimated at 6.5 %. This mammogram was interpreted with the aid of an FDA-approved computer-aided dectection system. Electronically Signed By: Jorge Martinez MD 01/27/21 [id number]
== END ==
LOC: M WHC 12:59
PROVIDERS: ATTEND Nurse Practitioner Family
DX: Z12.31 Encounter for screening mammogram for malignant neoplasm of breast (principal)

== ENCOUNTER → 2022-01-31 | Outpatient (REF) | payer MEDICARE ==
[2022-01-31 18:31] LABS: BASO % 0.8 % (0.0-1.0); EOS % 0.6 % (0.0-3.0); HEMATOCRIT 40.2 % (36.0-47.0); HEMOGLOBIN 13.1 g/dl (12.0-15.5); LYMPH # 1.5 10^3/uL (1.5-5.0); MEAN CORPUSCULAR HEMOGLOBIN 31.6 pg (27.0-33.0); MEAN CORPUSCULAR HGB CONC 32.6 g/dl (32.0-36.5); MEAN CORPUSCULAR VOLUME 97.1 fl (80.0-96.0); MONO # 0.4 10^3/uL (0.0-0.8); MONO % 7.8 % (2.0-8.0); NEUTROPHILS # 2.9 10^3/uL (1.5-8.5); NEUTROPHILS % 59.6 % (36.0-66.0); PLATELET COUNT, AUTOMATED 212 10^3/uL (150-450); RED BLOOD COUNT 4.14 10^6/uL (4.00-5.40); WHITE BLOOD COUNT 4.9 10^3/uL (4.0-10.0)
[2022-01-31 22:07] LABS: ALBUMIN 4.4 GM/DL (3.2-5.2); ALT/SGPT 24 U/L (12-78); BILIRUBIN,TOTAL 0.4 MG/DL (0.2-1.0); BLOOD UREA NITROGEN 14 MG/DL (7-18); CALCIUM LEVEL 9.9 MG/DL (8.8-10.2); CARBON DIOXIDE LEVEL 32 MEQ/L (21-32); CHLORIDE LEVEL 105 MEQ/L (98-107); CHOLESTEROL LEVEL 132 MG/DL (<200); CHOLESTEROL RISK RATIO 1.714 (<5); CREATININE FOR GFR 0.63 MG/DL (0.55-1.30); GLOMERULAR FILTRATION RATE > 60.0 (>45); GLUCOSE, FASTING 88 MG/DL (70-100); HDL CHOLESTEROL 77 MG/DL (>40); LDL CHOLESTEROL 39 MG/DL (<100); NON-HDL-C 55 MG/DL; POTASSIUM SERUM 4.2 MEQ/L (3.5-5.1); SODIUM LEVEL 139 MEQ/L (136-145); THYROID STIMULATING HORMONE 0.955 uIU/ML (0.358-3.740); TOTAL PROTEIN 7.2 GM/DL (6.4-8.2); TRIGLYCERIDES LEVEL 82 MG/DL (<150)
== END ==
LOC: M SFHCCLAY 13:36
PROVIDERS: ATTEND Nurse Practitioner Family
DX: E78.2 Mixed hyperlipidemia (principal); I63.9 Cerebral infarction, unspecified; I10 Essential (primary) hypertension; Z13.1 Encounter for screening for diabetes mellitus